=== PATIENT | female | born 1975 | race Caucasian/White ===

== ENCOUNTER 2018-03-10 07:37 | Day surgery (SDC) | payer OTHER ==
[2018-03-10] MEDS: ACETAMINOPHEN 650 MG SUPP PR (08:00)
[2018-03-10] MEDS ORDERED: LR 1,000 ML IV ×3 (08:00→10:15)
[2018-03-10 08:05] LABS: HEMATOCRIT 37.4 % (36.0-47.0); HEMOGLOBIN 12.6 g/dl (12.0-15.5); MEAN CORPUSCULAR HEMOGLOBIN 31.7 pg (27.0-33.0); MEAN CORPUSCULAR HGB CONC 33.7 g/dl (32.0-36.5); PLATELET COUNT, AUTOMATED 242 10^3/uL (150-450); RED BLOOD COUNT 3.98 10^6/uL (4.00-5.40); RED CELL DISTRIBUTION WIDTH 12.1 % (11.5-14.5); WHITE BLOOD COUNT 8.9 10^3/uL (4.0-10.0)
[2018-03-10] MEDS: LR 1,000 ML IV (08:15)
[2018-03-10] MEDS ORDERED: PROPOFOL 200 MG/20 ML VIAL As Ordered (08:16)
[2018-03-10] MEDS ORDERED: LIDOCAINE 2% INJ 100 MG/5 ML SDV (FOR ANES.) As Ordered (08:16)
[2018-03-10] MEDS ORDERED: fentaNYL 250 MCG/5 ML INJECTION (J3010) As Ordered (08:16)
[2018-03-10] MEDS ORDERED: ROCURONIUM BROMIDE 50 MG/5 ML VIAL As Ordered (08:16)
[2018-03-10] MEDS ORDERED: MIDAZOLAM INJ 2 MG/2 ML VIAL (J2250) As Ordered (08:17)
[2018-03-10 08:21] LABS: ANION GAP 4 MEQ/L (8-16); BLOOD UREA NITROGEN 18 MG/DL (7-18); CALCIUM LEVEL 8.1 MG/DL (8.5-10.1); CARBON DIOXIDE LEVEL 28 MEQ/L (21-32); CHLORIDE LEVEL 110 MEQ/L (98-107); CREATININE FOR GFR 0.82 MG/DL (0.55-1.30); GLOMERULAR FILTRATION RATE > 60.0 (>58); GLUCOSE, FASTING 99 MG/DL (70-100); POTASSIUM SERUM 4.1 MEQ/L (3.5-5.1); SODIUM LEVEL 142 MEQ/L (136-145)
[2018-03-10] MEDS ORDERED: dexameTHASONE 4 MG/ML 1ML VIAL (J1100) As Ordered (08:30)
[2018-03-10] MEDS: ACETAMINOPHEN 650 MG SUPP As Ordered (08:41)
[2018-03-10] MEDS ORDERED: PHENYLephrine HCL 500 MCG/5 ML (100MCG/ML) SYRINGE (J2370) As Ordered (08:43)
[2018-03-10] MEDS ORDERED: ePHEDrine SULFATE 25 MG/5 ML(5MG/ML) SYRINGE As Ordered (08:54)
[2018-03-10] MEDS ORDERED: NEOSTIGMINE 10 MG/10 ML VIAL (J2710) As Ordered (09:04)
[2018-03-10] MEDS ORDERED: HYDROmorphone HCL 2 MG/ML 1ML VIAL (J1170) As Ordered (09:04)
[2018-03-10] MEDS ORDERED: GLYCOPYRROLATE INJ 0.2 MG/ML 2 ML VIAL As Ordered (09:04)
[2018-03-10] MEDS ORDERED: KETOROLAC 60 MG/2 ML VIAL (J1885) As Ordered (09:12)
[2018-03-10] MEDS ORDERED: ONDANSETRON 4MG/2ML VIAL (J2405) As Ordered (09:12)
[2018-03-10] MEDS: BUPIVACAINE HCL 0.25% 10 ML VIAL As Ordered (09:18)
[2018-03-10] MEDS ORDERED: NORCO, ANEXSIA 5/325MG TABLET (HYDROcodone/ACETAMINOPHEN) PO (10:15)
[2018-03-10] MEDS ORDERED: ONDANSETRON 4MG/2ML VIAL (J2405) IV (10:15)
[2018-03-10] MEDS ORDERED: fentaNYL 100 MCG/2 ML INJECTION (J3010) IV (10:15)
== END 2018-03-10 13:12 | disposition home or self-care (01) ==
LOC: M SDC 07:37
DX: R10.2 Pelvic and perineal pain (principal); N80.9 Endometriosis, unspecified; F41.9 Anxiety disorder, unspecified; F32.9 Major depressive disorder, single episode, unspecified; G25.81 Restless legs syndrome; J45.909 Unspecified asthma, uncomplicated; Z79.899 Other long term (current) drug therapy; Z91.040 Latex allergy status
CPT/HCPCS: 49320

== ENCOUNTER 2018-07-21 23:50 | Emergency (ER) | payer OTHER, SELFPAY ==
[2018-07-22] MEDS: NORCO, ANEXSIA 5/325MG TABLET (HYDROcodone/ACETAMINOPHEN) PO ×2 (00:49)
[2018-07-22 01:10] LABS: KETONE, URINE AUTO RFX TRACE mg/dL (NEGATIVE); MUCUS, URINE RFX SMALL (NEGATIVE); NITRITE, URINE AUTO RFX NEGATIVE (NEGATIVE); RBC, URINE AUTO RFX 1 /HPF (0-3); SQUAM EPITHELIAL CELL UR AURFX 3 /HPF (0-6); WBC, URINE AUTO RFX 6 /HPF (0-3)
[2018-07-22 01:21] LABS: LEUKOCYTE ESTERASE UR AUTO RFX TRACE (NEGATIVE)
== END 2018-07-22 02:47 | disposition home or self-care (01) ==
LOC: M ED 23:50
DX: R10.2 Pelvic and perineal pain (principal); G43.909 Migraine, unspecified, not intractable, without status migrainosus; M51.9 Unspecified thoracic, thoracolumbar and lumbosacral intervertebral disc disorder; J45.909 Unspecified asthma, uncomplicated; F32.9 Major depressive disorder, single episode, unspecified; N80.9 Endometriosis, unspecified; Z79.899 Other long term (current) drug therapy; Z91.040 Latex allergy status
CPT/HCPCS: 76856

== ENCOUNTER 2018-12-14 08:21 | Day surgery (SDC) | payer OTHER ==
[~2018-12-14] VITALS: Ht 160 cm; Wt 57.2 kg
[~2018-12-14 08:21] MED LIST: ACETAMINOPHEN 650 MG SUPP PR ONE; ALBU17IN2 INH; ALPR0.5T3 PO; COLA50CA3 PO; CYCL10TA PO; DICL75TA PO; ESTR3TA PO; GABA-843 PO; GABA300C2 PO; IBUP80TA PO; LEUP375KIT; LEXA1TAB2 PO; LR 1,000 ML IV ONE; MULTTAB4 PO; ONDA-228 PO; OXYC1TAB23 PO; ZOLO50TA PO; ZOMI5TAB2 PO
[2018-12-14 08:59] LABS: HEMATOCRIT 40.5 % (36.0-47.0); HEMOGLOBIN 13.7 g/dl (12.0-15.5); MEAN CORPUSCULAR HEMOGLOBIN 31.4 pg (27.0-33.0); MEAN CORPUSCULAR HGB CONC 33.8 g/dl (32.0-36.5); MEAN CORPUSCULAR VOLUME 92.9 fl (80.0-96.0); PLATELET COUNT, AUTOMATED 276 10^3/uL (150-450); RED BLOOD COUNT 4.36 10^6/uL (4.00-5.40)
[2018-12-14 09:22] LABS: BLOOD UREA NITROGEN 16 MG/DL (7-18); CALCIUM LEVEL 8.5 MG/DL (8.5-10.1); CARBON DIOXIDE LEVEL 30 MEQ/L (21-32); CHLORIDE LEVEL 106 MEQ/L (98-107); CREATININE FOR GFR 0.89 MG/DL (0.55-1.30); GLOMERULAR FILTRATION RATE > 60.0 (>58); GLUCOSE, FASTING 87 MG/DL (70-100); POTASSIUM SERUM 4.2 MEQ/L (3.5-5.1); SODIUM LEVEL 139 MEQ/L (136-145)
[2018-12-14] MEDS ORDERED: ROCURONIUM BROMIDE 50 MG/5 ML VIAL As Ordered ONE (10:31)
[2018-12-14] MEDS ORDERED: ONDANSETRON 4MG/2ML VIAL (J2405) As Ordered ONE (10:31)
[2018-12-14] MEDS ORDERED: LIDOCAINE 2% INJ 100 MG/5 ML SDV (FOR ANES.) As Ordered ONE (10:31)
[2018-12-14] MEDS ORDERED: PROPOFOL 200 MG/20 ML VIAL As Ordered ONE (10:31)
[2018-12-14] MEDS ORDERED: METOCLOPRAMIDE INJ 10MG/2ML VIAL (J2765) As Ordered ONE (10:32)
[2018-12-14] MEDS ORDERED: fentaNYL 100 MCG/2 ML INJECTION (J3010) As Ordered ONE (10:32)
[2018-12-14] MEDS ORDERED: MIDAZOLAM INJ 2 MG/2 ML VIAL (J2250) As Ordered ONE (10:32)
[2018-12-14] MEDS ORDERED: KETOROLAC 60 MG/2 ML VIAL (J1885) As Ordered ONE (10:32)
[2018-12-14] MEDS ORDERED: ACETAMINOPHEN 650 MG SUPP As Ordered ONE (11:35)
[2018-12-14] MEDS ORDERED: dexameTHASONE 4 MG/ML 1ML VIAL (J1100) As Ordered ONE (12:14)
[2018-12-14] MEDS ORDERED: BUPIVACAINE HCL 0.5% 30 ML VIAL As Ordered ONE (12:26)
[2018-12-14] MEDS ORDERED: NORCO, ANEXSIA 5/325MG TABLET (HYDROcodone/ACETAMINOPHEN) PO PRN (13:30)
[2018-12-14] MEDS ORDERED: LR 1,000 ML IV SCH (13:30)
[2018-12-14] MEDS ORDERED: fentaNYL 100 MCG/2 ML INJECTION (J3010) IV PRN (13:30)
[2018-12-14] MEDS ORDERED: ONDANSETRON 4MG/2ML VIAL (J2405) IV PRN (13:30)
[2018-12-14] MEDS ORDERED: PERCOCET 5MG/325MG TAB PO PRN ×2 (13:45)
[2018-12-14] MEDS ORDERED: oxyCODONE 5MG TAB As Ordered ONE (13:49)
[2018-12-14] MEDS: oxyCODONE 5MG TAB PO PRN ×2 (13:50→14:25)
[2018-12-14 16:50] VITALS: BP 100/62
[2018-12-14] MEDS ORDERED: KETOROLAC 30 MG/ML VIAL (J1885) IV PRN (19:00)
== END 2018-12-14 16:55 | disposition home or self-care (01) ==
LOC: M SDC 08:21
PROVIDERS: ATTEND Obstetrics & Gynecology
DX: N83.202 Unspecified ovarian cyst, left side (principal); M54.5 Low back pain; F41.9 Anxiety disorder, unspecified; F32.9 Major depressive disorder, single episode, unspecified; G25.81 Restless legs syndrome; Z79.51 Long term (current) use of inhaled steroids; Z91.040 Latex allergy status; Z79.899 Other long term (current) drug therapy; F17.210 Nicotine dependence, cigarettes, uncomplicated
CPT/HCPCS: 36415; 58661; 80048; 85027; 88305; J1100; J1885; J2250; J2405; J2765; J3010

== ENCOUNTER 2019-03-03 04:36 | Emergency (ER) | payer OTHER ==
[~2019-03-03] VITALS: Ht 160 cm; Wt 56.0 kg
[~2019-03-03 04:36] MED LIST changes: -ACETAMINOPHEN 650 MG SUPP PR ONE; -LR 1,000 ML IV ONE
[2019-03-03] MEDS ORDERED: NS 1,000 ML IV ONE (05:00)
[2019-03-03 05:17] LABS: BASO # 0.1 10^3/uL (0.0-0.2); BASO % 0.6 % (0.0-1.0); EOS # 0.4 10^3/uL (0.0-0.50); EOS % 3.9 % (0.0-3.0); HEMATOCRIT 37.3 % (36.0-47.0); HEMOGLOBIN 12.6 g/dl (12.0-15.5); LYMPH # 2.7 10^3/uL (1.5-4.5); LYMPH % 29.1 % (24.0-44.0); MEAN CORPUSCULAR HEMOGLOBIN 32.1 pg (27.0-33.0); MEAN CORPUSCULAR HGB CONC 33.8 g/dl (32.0-36.5); MEAN CORPUSCULAR VOLUME 94.9 fl (80.0-96.0); MONO # 0.8 10^3/uL (0.0-0.8); MONO % 8.1 % (0.0-5.0); NEUTROPHILS # 5.4 10^3/uL (1.8-7.7); PLATELET COUNT, AUTOMATED 223 10^3/uL (150-450); RED BLOOD COUNT 3.93 10^6/uL (4.00-5.40); WHITE BLOOD COUNT 9.3 10^3/uL (4.0-10.0)
[2019-03-03 05:41] LABS: BLOOD UREA NITROGEN 18 MG/DL (7-18); CALCIUM LEVEL 8.6 MG/DL (8.5-10.1); CARBON DIOXIDE LEVEL 28 MEQ/L (21-32); CHLORIDE LEVEL 107 MEQ/L (98-107); CREATININE FOR GFR 0.93 MG/DL (0.55-1.30); GLOMERULAR FILTRATION RATE > 60.0 (>58); GLUCOSE, FASTING 93 MG/DL (70-100); POTASSIUM SERUM 3.9 MEQ/L (3.5-5.1); SODIUM LEVEL 142 MEQ/L (136-145)
[2019-03-03 05:42] LABS: ALBUMIN 3.6 GM/DL (3.2-5.2); ALT/SGPT 12 U/L (12-78); BILIRUBIN,DIRECT < 0.1 MG/DL (0.0-0.2); BILIRUBIN,TOTAL 0.2 MG/DL (0.2-1.0); LIPASE 151 U/L (73-393); TOTAL PROTEIN 6.9 GM/DL (6.4-8.2)
[2019-03-03 06:02] LABS: HCG, SERUM QUALITATIVE NEGATIVE (NEGATIVE)
[2019-03-03] MEDS ORDERED: KETOROLAC 30 MG/ML VIAL (J1885) IV ONE (06:30)
--- NOTE | 2019-03-03 07:05 | REPVR ---
EXAM: CT Abdomen and Pelvis Without Contrast EXAM DATE/TIME: 03/03/2019 6:16 AM CLINICAL HISTORY: 43 years old, female; Abdominal pain; Flank; Left; Additional info: Left flank pain, renal colic TECHNIQUE: Imaging protocol: Axial computed tomography images of the abdomen and pelvis without contrast. Coronal and sagittal reformatted images were created and reviewed. Radiation optimization: All CT scans at this facility use at least one of these dose optimization techniques: automated exposure control; mA and/or kV adjustment per patient size (includes targeted exams where dose is matched to clinical indication); or iterative reconstruction. COMPARISON: US PELVIC NON-OB COMPLETE 07/22/2018 12:57 AM FINDINGS: Lungs: There is mild associated atelectasis. Liver: There is a 3.4 x 2.6 cm right hepatic cyst. Another cyst measuring 2.1 x 2 cm seen at the right hepatic dome. Gallbladder and bile ducts: Normal. No calcified stones. No ductal dilation. Pancreas: Normal. No ductal dilation. Spleen: Normal. No splenomegaly. Adrenals: Normal. No mass. Kidneys and ureters: There is a 1.9 cm right renal fat density lesion. Stomach and bowel: Normal. No obstruction. No mucosal thickening. Appendix: No evidence of appendicitis. Intraperitoneal space: There is a trace amount of free pelvic fluid. Vasculature: Normal. No abdominal aortic aneurysm. Lymph nodes: There is suggestion of some small bowel wall thickening coupled with mesenteric haziness and shotty mesenteric lymph nodes. Bladder: There is a small urachal remnant at the dome of the urinary bladder. Reproductive: Patient status post hysterectomy. There is no gross adnexal mass. Bones/joints: No acute fracture. No dislocation. Soft tissues: Unremarkable. IMPRESSION: 1. No CT evidence of nephrolithiasis or hydronephrosis. 2. Some thickened small bowel loops coupled with mesenteric haziness and shotty mesenteric lymph nodes in addition to trace free pelvic fluid suggestive of enteritis. Correlate clinically. 3. Hepatic cysts. 4. 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 5. Small urachal remnant at the dome of the urinary bladder. 6. Status post hysterectomy. Electronically signed by: Vishal Gibson On 03/03/2019 07:04:55 AM
[2019-03-03] MEDS ORDERED: KETO10TAB PO (07:25)
[2019-03-03 07:44] VITALS: BP 108/67
--- NOTE | 2019-03-07 11:23 | ED PDOC ---
Post-Departure Follow-Up ft mandeep fisher faxed formal report of ct abd/p for fu Senia Tavarez MD Mar 07, 2019 11:23
== END 2019-03-03 07:47 | disposition home or self-care (01) ==
LOC: M ED 04:36
DX: D17.71 Benign lipomatous neoplasm of kidney (principal); K76.89 Other specified diseases of liver; G43.909 Migraine, unspecified, not intractable, without status migrainosus; F41.9 Anxiety disorder, unspecified; F32.9 Major depressive disorder, single episode, unspecified; Z72.0 Tobacco use; Z79.899 Other long term (current) drug therapy; Z91.040 Latex allergy status
CPT/HCPCS: 74176; 80048; 80076; 81001; 83690; 84703; 85025; 87086; 96374; 99284; J1885

== ENCOUNTER → 2019-07-31 | Outpatient (REF) | payer OTHER ==
[~2019-07-31] MED LIST changes: -ALBU17IN2 INH; +KETO10TAB PO; +PROV108A INH
== END ==
LOC: M SFHCLERA 10:33
PROVIDERS: ATTEND Nurse Practitioner Family
DX: J02.9 Acute pharyngitis, unspecified (principal)

== ENCOUNTER → 2020-09-22 | Outpatient (CLI) | payer SELFPAY ==
[~2020-09-22] MED LIST changes: +CYCL-707 PO; -CYCL10TA PO; +GABA-282 PO; -GABA-843 PO
== END ==
LOC: M LABSMTC 09:42
PROVIDERS: ATTEND Pediatrics
DX: Z20.822 Contact with and (suspected) exposure to COVID-19 (principal)

== ENCOUNTER → 2022-02-28 | Outpatient (CLI) | payer OTHER ==
[~2022-02-28] MED LIST changes: +GASTROGRAFIN SOLUTION 30ML (Q9963) As Ordered ONE
== END ==
LOC: M RAD 10:52
PROVIDERS: ATTEND Internal Medicine Gastroenterology
DX: R10.814 Left lower quadrant abdominal tenderness (principal)
CPT/HCPCS: 74176; Q9963

== ENCOUNTER → 2024-05-31 | Outpatient (CLI) | payer OTHER ==
[~2024-05-31] MED LIST changes: +ALBU6.7H6 INH; +GABA-1172 PO; -GABA-282 PO; -GASTROGRAFIN SOLUTION 30ML (Q9963) As Ordered ONE; +ISOVUE-370 76% 100ML VIAL ONE; -PROV108A INH
== END ==
LOC: M PLAIMG 09:12
PROVIDERS: ATTEND Internal Medicine Nephrology
DX: D41.01 Neoplasm of uncertain behavior of right kidney (principal); N28.1 Cyst of kidney, acquired; D17.71 Benign lipomatous neoplasm of kidney
CPT/HCPCS: 74170; Q9967